=== PATIENT | female | born 1990 | race American Indian/Alaskan Native ===

== ENCOUNTER 2016-06-03 13:19 | Emergency (ER) | payer SELFPAY ==
[2016-06-03 13:38] VITALS: BP 112/75
== END 2016-06-04 02:00 | disposition left against medical advice (07) ==
LOC: ED 13:19
DX: R07.9 Chest pain, unspecified (principal); R05 Cough; Z53.21 Procedure and treatment not carried out due to patient leaving prior to being seen by health care provider
CPT/HCPCS: 93005; 93010

== ENCOUNTER 2016-06-17 17:49 | Emergency (ER) | payer SELFPAY ==
[2016-06-17] MEDS ORDERED: LIDOCAINE VISCOUS 2% MM NR (19:45)
[2016-06-17] MEDS ORDERED: HYDROGEN PEROXIDE ONE (21:46)
[2016-06-18 00:01] VITALS: BP 130/80
--- NOTE | 2016-06-18 01:13 | Emergency Department Report ---
Entered by KAMERON PARK, acting as scribe for DEWAYNE ONTIVEROS PA. ED ENT HPI - General Chief complaint: Earache Stated complaint: EARS HURT Time Seen by Provider: 06/17/16 19:18 Source: patient Mode of arrival: Ambulatory Limitations: No Limitations - History of Present Illness Initial comments: 26 year old female presents to the ED for evaluation of bilateral ear pain for 10 days. Patient reports pain is constant and worse in right ear. She reports clear/yellow/light brown drainage from left ear. Despite using q-tips and peroxide, pain and drainage have persisted. She denies previous similar episodes , fever, chills, nausea, and vomiting. MD complaint: ear pain Onset/Timin -: days(s) Location: R ear, L ear Consistency: constant Improves with: none Worsens with: none Associated Symptoms: discharge from ear (clear/yellow/light brown drainage from left ear). denies: fever, cough, sore throat, rhinorrhea, other (chills, nausea , vomiting) - Related Data Previous Rx's Medication Instructions Recorded Last Taken Type Cephalexin [Keflex] 500 mg PO Q12HR #10 cap 05/04/16 Unknown Rx Neomy/Baci/Polymyx Oint [Triple 15 gm TP BID #1 oint 05/04/16 Unknown Rx Antibiotic] Amoxicillin [Amoxicillin TAB] 875 mg PO BID #14 tablet 06/17/16 Unknown Rx Carbamide Peroxide 6.5% [Ear Wax 1 - 2 drops OT BID #15 ml 06/17/16 Unknown Rx Drops] Ibuprofen [Motrin 600 MG tab] 600 mg PO Q8H PRN #20 tablet 06/17/16 Unknown Rx Allergies Allergy/AdvReac Type Severity Reaction Status Date / Time No Known Allergies Allergy Verified 06/17/16 19:42 ED Dental HPI - General Chief complaint: Earache Stated complaint: EARS HURT Time Seen by Provider: 06/17/16 19:18 Source: patient Mode of arrival: Ambulatory Limitations: No Limitations - Related Data Previous Rx's Medication Instructions Recorded Last Taken Type Cephalexin [Keflex] 500 mg PO Q12HR #10 cap 05/04/16 Unknown Rx Neomy/Baci/Polymyx Oint [Triple 15 gm TP BID #1 oint 05/04/16 Unknown Rx Antibiotic] Amoxicillin [Amoxicillin TAB] 875 mg PO BID #14 tablet 06/17/16 Unknown Rx Carbamide Peroxide 6.5% [Ear Wax 1 - 2 drops OT BID #15 ml 06/17/16 Unknown Rx Drops] Ibuprofen [Motrin 600 MG tab] 600 mg PO Q8H PRN #20 tablet 06/17/16 Unknown Rx Allergies Allergy/AdvReac Type Severity Reaction Status Date / Time No Known Allergies Allergy Verified 06/17/16 19:42 ED Review of Systems Comment: All other systems reviewed and negative Constitutional: denies: chills, fever ENT: ear pain (bilateral, worse in right), other (clear/yellow/light brown discharge from left ear). denies: throat pain, congestion (sinus congestion, rhinorrhea) Respiratory: denies: cough Gastrointestinal: denies: nausea, vomiting ED Past Medical Hx - Past Medical History Previous Medical History?: No Hx Kidney Stones: Yes Additional medical history: Brobchoititis - Surgical History Additional Surgical History: c-sec x 5 - Social History Smoking Status: Never Smoker Substance Use Type: None - Medications Home Medications: Home Medications Medication Instructions Recorded Confirmed Last Taken Type Cephalexin [Keflex] 500 mg PO Q12HR #10 cap 05/04/16 Unknown Rx Neomy/Baci/Polymyx Oint [Triple 15 gm TP BID #1 oint 05/04/16 Unknown Rx Antibiotic] Amoxicillin [Amoxicillin TAB] 875 mg PO BID #14 tablet 06/17/16 Unknown Rx Carbamide Peroxide 6.5% [Ear Wax 1 - 2 drops OT BID #15 ml 06/17/16 Unknown Rx Drops] Ibuprofen [Motrin 600 MG tab] 600 mg PO Q8H PRN #20 tablet 06/17/16 Unknown Rx ED Physical Exam - General Limitations: No Limitations - Other Other exam information: GENERAL: Patient is alert and oriented x 3. No apparent distress, normal gait, atraumatic. HEAD: Head is normocephalic and atraumatic. EYES: Extraocular movements are intact. Pupils are equal, round, and reactive to light and accommodation. EARS: Symmetrical, atraumatic. Left tragus tendern to plapation. Right tragus is not tender to palpation. Thick cerumen impaction bilaterally, unable to visualize tympanic membranes. Gross auditory nml bilaterally. NOSE: Nose symmetrical, nontender. Nares appeared normal. MOUTH:Mouth is well hydrated and without lesions. Mucous membranes are moist. Uvula midline. Tongue not elevated. Posterior pharynx clear, no exudate or lesions. Tonsils are not erythematous or swollen. Patent airway. LUNGS: Symmetrical with respiration. No wheezing, rales or crackles, CTAB. HEART: Regular rate and rhythm with normal S1/S2 present. No murmurs, rubs, or gallops. SKIN: Warm and dry. No lesions, ulceration or induration present PSYCHIATRIC: Mood is congruent with affect. ED Course Vital Signs 06/17/16 06/17/16 18:00 23:59 Temperature 98.9 F 98.4 F Pulse Rate 81 77 Respiratory 20 18 Rate Blood Pressure 117/78 130/80 [Right] O2 Sat by Pulse 100 100 Oximetry ED Medical Decision Making - Medical Decision Making 26 Y.o female presents with bilateral cerumen impaction ED Course: Viscous lidocaine was applied to use as bilaterally in the last 20 minutes. Left ear was flushed with several times with 35 mL of warm water x 4- cerumen expelled from ear. Left ear examined after flushing Mild serum and tympanic membranes visualized clear nonerythematous and nonbulging Right Ear was flushed with sounds of 75 mL of warm water. Severe cerumen expelled. Examination of the right ear shows erythematous tympanic membrane. Right ear canal pain. Home antibiotic treatment with amoxicillin. Patient tolerated procedure well. Ear exam after both here flushed with normal. Discussed the patient home medication of earwax drops for removal of earwax to apply one to 2 drops daily for the next week. Return as needed after that Discussed with patient patient to follow up with primary care physician. Referrals given. Vital signs are stable. Patient is in no acute or respiratory distress. ED Disposition Clinical Impression: Excessive cerumen in both ear canals, Right nonsuppurative otitis media Disposition: DISCHARGED TO HOME OR SELFCARE Is pt being admited?: No Does the pt Need Aspirin: No Condition: Stable Instructions: Cerumen Impaction (ED), Otitis Media (ED) Prescriptions: Amoxicillin [Amoxicillin TAB] 875 mg PO BID #14 tablet Carbamide Peroxide 6.5% [Ear Wax Drops] 1 - 2 drops OT BID #15 ml Ibuprofen [Motrin 600 MG tab] 600 mg PO Q8H PRN #20 tablet PRN Reason: Pain Referrals: PRIMARY CARE, [Primary Care Provider] - 3-5 Days CELI ROSS MD [Referring] - 3-5 Days CLEOPATRA LINDQUIST MD [Referring] - 3-5 Days SRINATH CALLAHAN MD [Referring] - 3-5 Days [facility] [Outside] - 3-5 Days [facility] [Outside] - 3-5 Days Forms: Work/School Release Form(ED) Time of Disposition: 23:24 This documentation as recorded by the XAVIER ramirez REBEKAH,accurately reflects the service I personally performed and the decisions made by ,DEWAYNE ONTIVEROS PA.
== END 2016-06-18 00:04 | disposition home or self-care (01) ==
LOC: ED 17:49
DX: H66.91 Otitis media, unspecified, right ear (principal); H61.23 Impacted cerumen, bilateral
CPT/HCPCS: 99283

== ENCOUNTER 2017-01-13 09:11 | Emergency (ER) | payer SELFPAY ==
[2017-01-13 09:53] LABS: Basophils % (Auto) 0.4 % (0.0-1.8); Eosinophils % (Auto) 0.7 % (0.0-4.3); Hematocrit 34.6 % (30.3-42.9); Hemoglobin 11.6 gm/dl (10.1-14.3); Mean Corpuscular HGB Conc 34 % (30-34); Mean Corpuscular Hemoglobin 30 pg (28-32); Mean Corpuscular Volume 89 fl (79-97); Platelet Count 169 K/mm3 (140-440); Red Blood Count 3.91 M/mm3 (3.65-5.03); Red Cell Distribution Width 14.1 % (13.2-15.2); White Blood Count 9.4 K/mm3 (4.5-11.0)
[2017-01-13 10:06] LABS: Alanine Aminotransferase 6 units/L (7-56); Albumin 4.6 g/dL (3.9-5); Albumin/Globulin Ratio 1.5 %; Alkaline Phosphatase 50 units/L (35-129); Anion Gap 16 mmol/L; BUN/Creatinine Ratio 14; Blood Urea Nitrogen 7 mg/dL (7-17); Calcium 9.5 mg/dL (8.4-10.2); Carbon Dioxide 28 mmol/L (22-30); Chloride 102.5 mmol/L (98-107); Glucose 94 mg/dL (65-100); Lipase 15 units/L (13-60); Potassium 4.4 mmol/L (3.6-5.0); Sodium 142 mmol/L (137-145); Total Protein 7.6 g/dL (6.3-8.2)
[2017-01-13] MEDS ORDERED: MORPHINE IV ONE (13:49)
[2017-01-13] MEDS ORDERED: PEPCID IV ONE (13:49)
[2017-01-13] MEDS ORDERED: BENTYL PO ONE (13:49)
[2017-01-13] MEDS ORDERED: TYLENOL PO ONE (13:49)
[2017-01-13] MEDS ORDERED: NACL 0.9% 1000 ML 1,000 ML IV ONE (13:49)
[2017-01-13] MEDS ORDERED: TORADOL IV ONE (13:49)
[2017-01-13] MEDS ORDERED: CARAFATE PO ONE (13:49)
--- NOTE | 2017-01-13 13:50 | Emergency Department Report ---
ED General Adult HPI - General Chief complaint: Abdominal Pain Stated complaint: VAGINAL BLEEDING, ABDOMINAL PAIN Time Seen by Provider: 01/13/17 13:30 Source: patient, RN notes reviewed Mode of arrival: Ambulatory Limitations: No Limitations - History of Present Illness Initial comments: This is a 26-year-old female, the patient is previously unknown to this provider. She does not have a primary care doctor, and she has no chronic medical conditions that she is aware of. No history of abdominal surgeries with the exception of 5, and tubal ligation. Patient presents to the ER with a complaint of diffuse abdominal pain, bilateral lower quadrants radiating to the upper abdomen, patient reports that this has been going on for the past few days. She indicated to the triage nurse that this was going on for weeks. Patient denies nausea, vomiting, fevers , chills, irritated and obstructive urinary symptoms. Patient reports multiple sexual partners without condoms. No dyspareunia that she is aware of. Patient was treated with multiple pain medications in the ER, including morphine, and she reports that this improved her symptoms. The patient also complained of pain in the epigastric/subxiphoid chest. This has been present since yesterday. The pain does not radiate anywhere. There is no vomiting or diaphoresis. No pulmonary embolus or DVT risk factors. No aspirin use. No cocaine use. -: Gradual Location: chest, abdomen, pelvis Radiation: abdomen Quality: aching Consistency: intermittent Improves with: rest Worsens with: movement Associated Symptoms: chest pain, loss of appetite, malaise, weakness. denies: confusion - Related Data Previous Rx's Medication Instructions Recorded Last Taken Type Cephalexin [Keflex] 500 mg PO Q12HR #10 cap 05/04/16 Unknown Rx Neomy/Baci/Polymyx Oint [Triple 15 gm TP BID #1 oint 05/04/16 Unknown Rx Antibiotic] Amoxicillin [Amoxicillin TAB] 875 mg PO BID #14 tablet 06/17/16 Unknown Rx Carbamide Peroxide 6.5% [Ear Wax 1 - 2 drops OT BID #15 ml 06/17/16 Unknown Rx Drops] Ibuprofen [Motrin 600 MG tab] 600 mg PO Q8H PRN #20 tablet 06/17/16 Unknown Rx Acetaminophen [Tylenol Arthritis] 650 mg PO Q6HR PRN #30 tablet.er 01/13/17 Unknown Rx Doxycycline [Vibramycin] 100 mg PO Q12HR #28 capsule 01/13/17 Unknown Rx Ibuprofen [Motrin] 600 mg PO Q8H PRN #30 tablet 01/13/17 Unknown Rx Ondansetron [Zofran Odt] 4 mg PO Q8HR PRN #20 tab.rapdis 01/13/17 Unknown Rx Allergies Allergy/AdvReac Type Severity Reaction Status Date / Time No Known Allergies Allergy Verified 01/13/17 09:14 ED Review of Systems ROS: Stated complaint: VAGINAL BLEEDING, ABDOMINAL PAIN Other details as noted in HPI Constitutional: malaise. denies: fever Eyes: denies: vision change ENT: denies: epistaxis Respiratory: denies: shortness of breath Cardiovascular: chest pain Gastrointestinal: abdominal pain Genitourinary: abnormal menses Musculoskeletal: back pain Skin: denies: lesions Neurological: weakness Psychiatric: anxiety ED Past Medical Hx - Past Medical History Hx Kidney Stones: Yes Additional medical history: Brobchoititis - Surgical History Past Surgical History?: Yes Additional Surgical History: c-sec x 5, tubaligation - Social History Smoking Status: Current Every Day Smoker Substance Use Type: None - Medications Home Medications: Home Medications Medication Instructions Recorded Confirmed Last Taken Type Cephalexin [Keflex] 500 mg PO Q12HR #10 cap 05/04/16 Unknown Rx Neomy/Baci/Polymyx Oint [Triple 15 gm TP BID #1 oint 05/04/16 Unknown Rx Antibiotic] Amoxicillin [Amoxicillin TAB] 875 mg PO BID #14 tablet 06/17/16 Unknown Rx Carbamide Peroxide 6.5% [Ear Wax 1 - 2 drops OT BID #15 ml 06/17/16 Unknown Rx Drops] Ibuprofen [Motrin 600 MG tab] 600 mg PO Q8H PRN #20 tablet 06/17/16 Unknown Rx Acetaminophen [Tylenol Arthritis] 650 mg PO Q6HR PRN #30 tablet.er 01/13/17 Unknown Rx Doxycycline [Vibramycin] 100 mg PO Q12HR #28 capsule 01/13/17 Unknown Rx Ibuprofen [Motrin] 600 mg PO Q8H PRN #30 tablet 01/13/17 Unknown Rx Ondansetron [Zofran Odt] 4 mg PO Q8HR PRN #20 tab.rapdis 01/13/17 Unknown Rx ED Physical Exam - General Limitations: No Limitations General appearance: alert, in distress - Head Head exam: Present: atraumatic, normocephalic - Eye Eye exam: Present: normal appearance, EOMI - ENT ENT exam: Present: normal exam, normal orophraynx, mucous membranes moist, normal external ear exam - Neck Neck exam: Present: normal inspection, full ROM. Absent: tenderness, meningismus - Respiratory Respiratory exam: Present: normal lung sounds bilaterally. Absent: respiratory distress, wheezes, rales, rhonchi, stridor, chest wall tenderness, accessory muscle use, decreased breath sounds, prolonged expiratory - Cardiovascular Cardiovascular Exam: Present: normal rhythm, tachycardia, normal heart sounds. Absent: systolic murmur, diastolic murmur, rubs, gallop - GI/Abdominal GI/Abdominal exam: Present: soft, normal bowel sounds. Absent: distended, tenderness, guarding, rebound, rigid, pulsatile mass - External exam: Present: normal external exam Speculum exam: Present: normal speculum exam, other (there is a tampon noted inside the vaginal vault, it is clotted together with blood, and it is removed without difficulty.) Bi-manual exam: Present: cervical motion tendernes, adnexal tenderness, uterine tenderness, other (escorted by customer account executive Shanitasandy galvez) - Extremities Exam Extremities exam: Present: normal inspection, full ROM, normal capillary refill. Absent: pedal edema, joint swelling - Back Exam Back exam: Present: normal inspection, full ROM. Absent: tenderness, CVA tenderness (R), CVA tenderness (L), muscle spasm, paraspinal tenderness, vertebral tenderness - Neurological Exam Neurological exam: Present: alert, oriented X3, other (Extraocular movements intact. Tongue midline. No facial droop. Facial sensation intact to light touch in the V1, V2, V3 distribution bilaterally. 5 and 5 strength in 4 extremities.. Sensation is intact to light touch in 4 extremities.). Absent: motor sensory deficit - Psychiatric Psychiatric exam: Present: normal affect, normal mood - Skin Skin exam: Present: warm, dry, intact, normal color. Absent: rash ED Course Vital Signs 01/13/17 09:14 Temperature 99.7 F H Pulse Rate 101 H Blood Pressure 111/75 O2 Sat by Pulse 100 Oximetry - Reevaluation(s) Reevaluation #1: 01/13/17 15:35 Differential diagnosis: Pelvic inflammatory disease, pneumonia, GERD, gastritis , Jaden-Mohsen Ted syndrome Assessment and plan: 26-year-old female with diffuse abdominal pain, atypical chest pain. No pulmonary embolus or DVT risk factors, low risk by well's criteria, low risk by NAYA score, low risk by heart score, chest pain present for over 24 hours, troponin negative 1, as per the [employer] clinical policy, myocardial infarction may be excluded with 1 set of troponins if symptoms are present for greater than 8 hours. Abdomen was nontender, but patient had diffuse gynecologic tenderness, making me suspect pelvic inflammatory disease. The CT scan with IV contrast demonstrated ovarian cysts, nonspecific inflammatory process, corroborating possible pelvic inflammatory disease. The patient's urinalysis is appreciated, but she does not endorse irritative or obstructive urinary symptoms. She has no CVA tenderness, and there is no CT evidence of pyelonephritis. ED Medical Decision Making - Lab Data Result diagrams: 01/13/17 09:31 01/13/17 09:31 - EKG Data -: EKG Interpreted by Me EKG shows normal: sinus rhythm, axis, intervals, QRS complexes, ST-T waves Rate: normal - EKG Data When compared to previous EKG there are: previous EKG unavailable - Radiology Data Radiology results: report reviewed, image reviewed X-ray of the chest is negative for acute disease Critical care attestation.: If time is entered above; I have spent that time in minutes in the direct care of this critically ill patient, excluding procedure time. ED Disposition Clinical Impression: Abdominal pain Disposition: DC-01 TO HOME OR SELFCARE Is pt being admited?: No Does the pt Need Aspirin: No Condition: Good Instructions: Pelvic Inflammatory Disease (ED) Additional Instructions: As we discussed, your laboratory studies appeared to be within normal limits. You are not . Given all this, you'll be treated empirically for disease called pelvic inflammatory disease. We typically treat young females with unexplained lower abdominal pain to protect your ability to have children safely in the future. Cultures were sent today, and results will be available next 3-5 days. Please have your primary care doctor call the medical records department to obtain your culture results. Take the antibiotic therapy as directed. Take the nausea medication and pain medication as directed. I recommend outpatient testing for sexually transmitted diseases, including hepatitis, syphilis and HIV. I also recommend that you abstain from sexual activity until you have completed her antibiotic therapy, a physician states that it is safe for you to resume sexual activity, and any partners that you have been sexually active with have been tested/treated/evaluated for sexual transmitted diseases. Please follow-up with physician within 3-5 days. I recommend that you return to the ER right away with worsening pain, migration of pain, intractable nausea/vomiting, inability tolerate liquid feeds. Referrals: PRIMARY CAREMD [Primary Care Provider] - 3-5 Days [facility] [Provider Group] - 3-5 Days [facility] [Provider Group] - 3-5 Days [facility] [Provider Group] - 3-5 Days
--- NOTE | 2017-01-13 14:39 | XRay Report ---
CHEST ONE VIEW INDICATION: Chest pain. COMPARISON: None similar at this institution. FINDINGS: Portable, single, frontal chest radiograph demonstrates normal cardiomediastinal silhouette. Clear lungs. Unremarkable bones. Bilateral nipple piercing ornaments. CONCLUSION: No acute disease in the chest. Thank you for the opportunity to participate in this patient's care.
[2017-01-13] MEDS ORDERED: MORPHINE ONE (14:43)
[2017-01-13 14:58] LABS: Bacteria,Urine 4+ /HPF (Negative); Bilirubin,Urine NEG (Negative); Blood,Urine SM (Negative); Ketones,Urine NEG (Negative); Leukocyte Esterase,Urine LG (Negative); Mucus,Urine 3+ /HPF; Nitrite,Urine NEG (Negative); Protein,Urine <15 mg/dL mg/dL (Negative)
[2017-01-13] MEDS ORDERED: VIBRAMYCIN PO ONE (15:01)
[2017-01-13] MEDS ORDERED: ROCEPHIN 250 MG in NACL 0.9% 50 ML IV ONE (15:01)
[2017-01-13] MEDS ORDERED: ROCEPHIN/NS 1 GM/50 ML 1 GM/50 ML BAG IV ONE (15:22)
[2017-01-13 15:35] VITALS: BP 110/75
--- NOTE | 2017-01-13 15:41 | Cat Scan Report ---
CT ABDOMEN AND PELVIS WITH CONTRAST INDICATION: Diffuse abdominal pain. Possible PID. COMPARISON: None similar. FINDINGS: Abdomen and pelvis CT performed following intravenous administration of 100 cc of Omnipaque 300. LUNG BASES: Mild air-filled distal esophageal wall prominence/thickening, not excluded for gastroesophageal reflux and/or hiatal hernia, amongst others. ABDOMEN: Liver, spleen, gallbladder, pancreas, adrenals, aorta, IVC and kidneys within normal limits. Approximately 9 mm right renal cortical hypodensity superomedially, axial image 77. Nonopacified GI tract evaluation limited, though grossly nonobstructive. Normal appendix. PELVIS: Approximately 4.2 x 2.8 cm ovoid dermoid in the right lower quadrant/upper right hemipelvis, predominantly fatty with some intrinsic soft tissue component as on axial image 227, series 2, amongst others. Approximately 1.7 cm left adnexal/ovarian cyst, image 280. Grossly unremarkable uterus, urinary bladder and the rectosigmoid, though subtle diffuse pelvic fat stranding not entirely excluded, though in part vascularity and few fluid containing small bowel loops as well. No significant free fluid. Few small bilateral inguinal lymph nodes. Unremarkable bones. CONCLUSION: 1. Right adnexal dermoid, as described. PID and/or pelvic congestion may be correlated for in an appropriate clinical setting. 2. Few other incidental findings, as above. Thank you for the opportunity to participate in this patient's care.
== END 2017-01-13 17:32 | disposition home or self-care (01) ==
LOC: ED 09:11
DX: R10.84 Generalized abdominal pain (principal); R07.89 Other chest pain; R53.1 Weakness; N93.9 Abnormal uterine and vaginal bleeding, unspecified; F17.210 Nicotine dependence, cigarettes, uncomplicated
CPT/HCPCS: 36415; 71010; 74177; 80053; 81001; 83690; 84484; 84703; 85025; 87210; 87591; 93005; 93010; 96361; 96365; 96375; 99285; J0696; J1885; J2270; J7030; Q9967